=== PATIENT | female | born 1965 | race Caucasian/White ===

== ENCOUNTER 2022-05-22 12:17 | Outpatient (CLI) | payer BC, SELFPAY | END 2022-05-22 12:18 | disposition home or self-care (01) | PROVIDERS: Visit Provider Obstetrics & Gynecology | DX: R10.11 Right upper quadrant pain (principal) | CPT/HCPCS: 82306; 83001; 84443 ==

== ENCOUNTER 2022-05-23 10:25 | Outpatient (CLI) | payer BC, SELFPAY ==
--- NOTE | 2022-05-23 10:45 | CRLHL7_ITS ---
For Patients: As a result of the Century Cures Act, medical imaging exams and procedure reports are released immediately into your electronic medical record. You may view this report before your referring provider. If you have questions, please contact your health care provider. INDICATION: Right upper quadrant tenderness TECHNIQUE: Ultrasound abdomen limited. Sonographic images of the right upper quadrant were obtained using baer-scale and color Doppler images. COMPARISON: None FINDINGS: Liver: Normal in size and echotexture. No masses. No intrahepatic biliary dilatation. Gallbladder: No stones or sludge. Normal wall thickness. No pericholecystic fluid. Common bile duct: 4.2 mm. Pancreas: Normal. Right kidney: 11.4 cm. Normal echotexture and cortex. No masses, stones, or hydronephrosis. Vasculature: Proximal abdominal aorta and IVC are normal. IMPRESSION: Unremarkable right upper quadrant ultrasound. Dictated by Spike Fletcher MD @ 05/23/2022 11:16:03 AM (Electronically Signed)
== END 2022-05-23 10:26 | disposition home or self-care (01) ==
LOC: US 10:26
PROVIDERS: Visit Provider Obstetrics & Gynecology
DX: R10.11 Right upper quadrant pain (principal)
CPT/HCPCS: 76705